=== PATIENT | female | born 1985 | race Caucasian/White ===

== ENCOUNTER 2017-08-12 11:22 | Outpatient (CLI) | payer OTHER ==
[~2017-08-12] VITALS: Ht 160 cm; Wt 74.0 kg
[~2017-08-12 11:22] MED LIST: AUGMENTIN875 MG PO
[2017-08-12 11:54] VITALS: BP 114/65
[2017-08-12 11:54] LABS: BASOPHIL COUNT 0.1 K/uL (0-0.1); EOSINOPHIL (%) 4.1 % (0-5); EOSINOPHIL COUNT 0.4 K/uL (0-0.3); HEMATOCRIT 33.2 % (36.0-46.0); IMMATURE GRANULOCYTE (%) 1.2 % (0.0-0.7); IMMATURE GRANULOCYTE COUNT 0.1 K/uL; INSTRUMENT ABS NEUTROPHIL CT 6.1 K/uL; LYMPHOCYTE COUNT 1.5 K/uL (1.0-2.8); MCH 26.5 PG (29.0-34.0); MCHC 32.2 G/DL (30.0-36.0); MCV 82.2 FL (83-99); MEAN PLAT.VOLUME 12.3 uM^3 (9.5-12.4); MONOCYTE (%) 8.9 % (3-12); MONOCYTE COUNT 0.8 K/uL (0-0.8); NEUTROPHIL (%) 68.5 % (45-76); NEUTROPHIL COUNT 6.1 K/uL (1.8-6.4); PLATELET COUNT 182 K/uL (156-360); RBC DIS.WIDTH-CV 14.6 % (11.8-14.6); RBC DIS.WIDTH-SD 43.3 % (39-53); RED BLOOD COUNT 4.04 M/uL (3.80-5.20); WHITE BLOOD COUNT 8.8 K/uL (4.1-10.2)
[2017-08-12] MEDS ORDERED: PRENATAL TABLE1 EAC3 PO (12:01)
[2017-08-12 12:05] LABS: AMYLASE 68 IU/L (1-118); CHLORIDE 108 mEq/L (99-109); POTASSIUM 3.6 mEq/L (3.7-5.4); SODIUM 136 mEq/L (136-147)
[2017-08-12 12:06] LABS: GLUCOSE 100 mg/dL (70-99)
[2017-08-12 12:08] LABS: ANION GAP 10 MEQ/L (2-14)
[2017-08-12 12:10] LABS: GFR ESTIMATE (CALCULATED) > 59 mL/min/; SERUM ETHYL ALCOHOL < 10 mg/dL
[2017-08-12 12:11] LABS: UREA NITROGEN (BUN) 9 mg/dL (9-23)
[2017-08-12 12:13] LABS: LIPASE 26 U/L (1.0-51.0)
[2017-08-12 12:36] LABS: QUANTITATIVE HCG 18922.7 MIU/ML
[2017-08-12 12:49] LABS: FIBRINOGEN 284 mg/dL (150-450); INTER. NORMALIZED RATIO 0.9; PROTHROMBIN TIME 10.8 SEC (10.2-12.9)
[2017-08-12 12:51] LABS: PTT 24.2 SEC (25-37)
[2017-08-12 13:12] LABS: ALKALINE PHOSPHATASE 111 IU/L (3-129); TOTAL BILIRUBIN 0.2 MG/DL (0.0-1.0)
[2017-08-12 13:37] VITALS: BP 120/66
[2017-08-12 15:03] VITALS: BP 114/67
[2017-08-12 16:04] VITALS: BP 114/59
[2017-08-12 16:41] LABS: ADD MIUA? NO; BILIRUBIN NEGATIVE; BLOOD NEGATIVE; COLOR YELLOW ((YELLOW)); GLUCOSE (STRIP) 50; KETONES NEGATIVE; LEUKOCYTES NEGATIVE; NITRITE NEGATIVE; PROTEIN (STRIP) NEGATIVE; SPECIFIC GRAVITY 1.012 (1.000-1.030); UCUL ADDED? NO; UROBILINOGEN 0.2 MG/DL (0.2-1.0)
[2017-08-12 16:53] LABS: AMPHETAMINE NEGATIVE (500 ng/mL); BARBITURATES NEGATIVE (200 ng/mL); BENZODIAZEPINES NEGATIVE (150 ng/mL); COCAINE NEGATIVE (150 ng/mL); METHADONE NEGATIVE (200 ng/mL); METHAMPHETAMINE NEGATIVE (500 ng/mL); OPIATES (MORPHINE) NEGATIVE (100 ng/mL); PHENCYCLIDINE NEGATIVE (25 ng/mL); THC CANNABINOIDS NEGATIVE (50 ng/mL); TRICYCLIC ANTIDEPRESSANTS NEGATIVE (300 ng/mL)
[2017-08-12 16:54] LABS: INTERNAL CONTROLS VALID? YES; OXYCODONE NEGATIVE (100 ng/mL); PROPOXYPHENE NEGATIVE (300 ng/mL)
[2017-08-12 17:39] VITALS: BP 121/65
[2017-08-12 19:52] VITALS: BP 122/57
== END 2017-08-12 20:25 | disposition home or self-care (01) ==
LOC: TRA 11:22 → EDSTATUS 11:46 → LDRP-OP 11:48 → 2WEST 11:49
PROVIDERS: Emergency Medicine; Obstetrics & Gynecology Gynecology
DX: O9A.213 Injury, poisoning and certain other consequences of external causes complicating pregnancy, third trimester (principal); Z3A.36 36 weeks gestation of pregnancy; R10.9 Unspecified abdominal pain; V49.3XXA Car occupant (driver) (passenger) injured in unspecified nontraffic accident, initial encounter; Y92.410 Unspecified street and highway as the place of occurrence of the external cause
CPT/HCPCS: 59025; 80048; 80053; 80076; 81003; 82150; 83690; 84702; 85025; 85384; 85460; 85610; 85730; 86850; 86900; 86901; 99281; 99284; G0378; G0480

== ENCOUNTER 2017-09-10 05:17 | Inpatient (IN) | payer OTHER ==
[2017-09-10] VITALS (13 sets, daily range): BP systolic 122–144; BP diastolic 60–81
[~2017-09-10] VITALS: Ht 157.5 cm; Wt 78.2 kg
[~2017-09-10 05:17] MED LIST changes: +PRENATAL TABLE1 EAC3 PO
[2017-09-10 06:58] LABS: EOSINOPHIL COUNT 0.2 K/uL (0-0.3); HEMATOCRIT 34.4 % (36.0-46.0); IMMATURE GRANULOCYTE COUNT 0.2 K/uL; INSTRUMENT ABS NEUTROPHIL CT 15.7 K/uL; LYMPHOCYTE COUNT 1.1 K/uL (1.0-2.8); MCH 25.4 PG (29.0-34.0); MCHC 31.7 G/DL (30.0-36.0); MCV 80.2 FL (83-99); MEAN PLAT.VOLUME 11.9 uM^3 (9.5-12.4); MONOCYTE (%) 5.7 % (3-12); MONOCYTE COUNT 1.1 K/uL (0-0.8); NEUTROPHIL (%) 85.9 % (45-76); NEUTROPHIL COUNT 15.7 K/uL (1.8-6.4); PLATELET COUNT 192 K/uL (156-360); RBC DIS.WIDTH-CV 16.7 % (11.8-14.6); RBC DIS.WIDTH-SD 48.3 % (39-53); RED BLOOD COUNT 4.29 M/uL (3.80-5.20); WHITE BLOOD COUNT 18.3 K/uL (4.1-10.2)
[2017-09-10] MEDS ORDERED: MOTRIN800 MG PO (15:19)
[2017-09-11 00:13] VITALS: BP 127/72
[2017-09-11 07:21] VITALS: BP 104/63
[2017-09-11 15:42] VITALS: BP 124/56
[2017-09-12 08:23] VITALS: BP 112/61
[2017-09-12 15:03] VITALS: BP 124/71
== END 2017-09-12 18:25 | disposition home or self-care (01) | DRG 775 ==
LOC: LDRP-OP 05:17 → 2WEST 05:18 → LDRP-OP 10-07 08:27
PROVIDERS: Nurse Practitioner
DX: O70.1 Second degree perineal laceration during delivery (principal); O69.3XX0 Labor and delivery complicated by short cord, not applicable or unspecified; O63.0 Prolonged first stage (of labor); O99.824 Streptococcus B carrier state complicating childbirth; O99.72 Diseases of the skin and subcutaneous tissue complicating childbirth; L72.0 Epidermal cyst; O99.354 Diseases of the nervous system complicating childbirth; G56.01 Carpal tunnel syndrome, right upper limb; Z23 Encounter for immunization; Z3A.40 40 weeks gestation of pregnancy; Z37.0 Single live birth
CPT/HCPCS: 85025; 90686; C1755; J0595; J2540; J3010; J7120